=== PATIENT | female | born 2005 | race Hispanic/Latino ===

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

== ENCOUNTER 2024-08-25 09:27 | Outpatient (CLI) | payer OTHER | END 2024-08-25 09:28 | disposition home or self-care (01) | LOC: BICULT 09:27 | PROVIDERS: ATTEND Advanced Practice Midwife | DX: Z34.92 Encounter for supervision of normal pregnancy, unspecified, second trimester (principal); Z3A.19 19 weeks gestation of pregnancy | CPT/HCPCS: 76805 ==